=== PATIENT | female | born 1950 | race Two or more races ===

== ENCOUNTER 2021-06-01 00:27 | Inpatient (IN) | payer OTHER ==
[~2021-06-01] VITALS: Ht 154.9 cm; Wt 24.5 kg
[2021-06-01] MEDS ORDERED: IPRATROPIUM BROM 0.5 MG/2.5ML INH SOL NEB ONE (00:45)
[2021-06-01] MEDS ORDERED: ALBUTEROL SULF 2.5 MG/0.5ML(0.5%) NEB SOLN NEB ONE (00:45)
[2021-06-01] MEDS ORDERED: DexAMETHasone INJECTION 10 MG in D5W 5% 50 ML IV ONE (01:45)
[2021-06-01] MEDS ORDERED: ONDANSETRON HCL 4 MG/2 ML VIAL IV PRN (05:15)
[2021-06-01] MEDS ORDERED: NITROGLYCERIN 0.4 MG SL TAB SL PRN (05:15)
[2021-06-01] MEDS ORDERED: MORPHINE SULFATE INJECTION 2 MG/ML SYRG IV PRN (05:15)
[2021-06-01] MEDS ORDERED: DexAMETHasone SOD PHOS 10MG/1ML VIAL INJ IV ONE (05:30)
[2021-06-01] MEDS ORDERED: LORazepam 2MG/ML-1ML VIAL IV ONE (05:30)
[2021-06-01 05:44] LABS: Basophils # (auto) 0 10 ^3/uL (0-0.2); Basophils % (auto) 0.5 % (0.0-2.0); Eosinophils # (auto) 0.2 10 ^3/uL (0-0.8); Eosinophils % (auto) 3.3 % (0.0-7.0); Hematocrit 45.7 % (36.0-46.0); Hemoglobin 15.2 g/dL (12.2-16.2); Lymphocytes # (auto) 0.9 10 ^3/uL (0.4-5.4); Mean Corpuscular Hemoglobin 32.9 pg (28.0-32.0); Mean Corpuscular Hgb Conc. 33.4 g/dL (32.0-36.0); Mean Corpuscular Volume 98.7 fL (80.0-100.0); Monocytes # (auto) 0.5 10 ^3/uL (0-1.3); Monocytes % (auto) 7.4 % (0.0-12.0); Neutrophils # (auto) 5.1 10 ^3/uL (1.6-8.6); Neutrophils % (auto) 75.8 % (37.0-80.0); Nucleated Red Blood Cells % 0.1 %; Red Blood Cells 4.63 10^6/uL (4.0-5.20); Red Cell Distribution Width 13.3 % (11.8-14.3); White Blood Cell 6.7 10^3/uL (4.4-10.8)
[2021-06-01] MEDS ORDERED: SUCCINYLCHOLINE CHLORIDE 20 MG/ML 10ML VIAL IV ONE ×2 (05:58→06:00)
[2021-06-01] MEDS ORDERED: ETOMIDATE (2MG/ML) 20ML VIAL IV ONE ×2 (05:58→06:00)
[2021-06-01 06:00] VITALS: BP 141/70
[2021-06-01 06:08] LABS: Calcium 8.5 mg/dL (8.5-10.1)
[2021-06-01 06:15] LABS: BUN/Creatinine Ratio 23.4; Bilirubin, Total 0.4 mg/dL (0.2-1.0)
[2021-06-01] MEDS: PROPOFOL 100 ML IV SCH (06:15)
[2021-06-01 07:09] LABS: Urine Bacteria NONE SEEN /hpf (None Seen); Urine Blood 1+ /uL (Negative); Urine Mucus FEW (None Seen); Urine Specific Gravity 1.022 (1.001-1.035); Urine WBC 3 /hpf (0 - 5)
[2021-06-01] MEDS: IPRATROPIUM BROM 0.5 MG/2.5ML INH SOL NEB SCH ×3 (07:13→18:55)
[2021-06-01] MEDS: ALBUTEROL SULF 2.5 MG/0.5ML(0.5%) NEB SOLN NEB SCH ×3 (07:13→18:55)
[2021-06-01] MEDS ORDERED: NOREPINEPHRINE 8 MG/250ML KIT 250 ML IV ONE (07:27)
[2021-06-01] MEDS: MIDAZOLAM DRIP 50 mg/50mL 50 ML IV SCH (07:30)
[2021-06-01] MEDS: NOREPINEPHRINE 8 MG/250ML KIT 250 ML IV SCH (07:30)
[2021-06-01] MEDS ORDERED: MIDAZOLAM DRIP 50 mg/50mL 50 ML IV ONE (07:39)
[2021-06-01] MEDS ORDERED: cefTRIAXone 1GM/50ML D5W 50 ML IV SCH (09:00)
[2021-06-01 10:00] VITALS: BP 95/36
[2021-06-01] MEDS ORDERED: PANTOPRAZOLE 40 MG TAB PO SCH (10:00)
[2021-06-01] MEDS ORDERED: ENOXAPARIN SOD 40 MG/0.4 ML SYRINGE SC SCH (10:00)
[2021-06-01] MEDS ORDERED: DexAMETHasone INJECTION 10 MG in D5W 5% 50 ML IV SCH (10:00)
[2021-06-01] MEDS: methylPREDNISolone SOD SUCC 40 MG/ML VL IV SCH ×2 (10:00→22:00)
[2021-06-01] MEDS: ENOXAPARIN SOD 40 MG/0.4 ML SYRINGE SC SCH (10:00)
[2021-06-01 14:05] VITALS: BP 110/68
[2021-06-01] MEDS: ACETAMINOPHEN 325 MG TAB PO PRN (15:18)
[2021-06-01] MEDS: fentaNYL Drip 2500mCg/250mlNS 250 ML IV SCH (15:30)
[2021-06-01] MEDS: SODIUM CHLORIDE 0.9% 1,000 ML IV SCH (16:12)
[2021-06-01 18:55] VITALS: BP 110/68
[2021-06-01 19:30] VITALS: BP 88/49
[2021-06-01] MEDS: ACETAMINOPHEN 650 MG RECT SUPP PR PRN (20:50)
[2021-06-01 22:00] VITALS: BP 118/66
[2021-06-01] MEDS: PIPERACILLIN-TAZOB 3.375GM 100 ML IV SCH (22:00)
[2021-06-02 02:00] VITALS: BP 125/69
[2021-06-02] MEDS: PIPERACILLIN-TAZOB 3.375GM 100 ML IV SCH ×3 (05:47→23:26)
[2021-06-02 05:58] VITALS: BP 155/82
[2021-06-02] MEDS: ALBUTEROL SULF 2.5 MG/0.5ML(0.5%) NEB SOLN NEB SCH ×3 (05:58→18:53)
[2021-06-02] MEDS: IPRATROPIUM BROM 0.5 MG/2.5ML INH SOL NEB SCH ×3 (05:58→18:53)
[2021-06-02] MEDS: PROPOFOL 100 ML IV SCH ×2 (06:26→13:20)
[2021-06-02 06:37] LABS: Basophils # (auto) 0 10 ^3/uL (0-0.2); Basophils % (auto) 0.2 % (0.0-2.0); Eosinophils # (auto) 0 10 ^3/uL (0-0.8); Hematocrit 43.5 % (36.0-46.0); Hemoglobin 14.2 g/dL (12.2-16.2); Lymphocytes # (auto) 1.1 10 ^3/uL (0.4-5.4); Lymphocytes % (auto) 8.4 % (10.0-50.0); Mean Corpuscular Hemoglobin 32.2 pg (28.0-32.0); Mean Corpuscular Hgb Conc. 32.6 g/dL (32.0-36.0); Mean Corpuscular Volume 98.6 fL (80.0-100.0); Monocytes # (auto) 0.6 10 ^3/uL (0-1.3); Monocytes % (auto) 4.8 % (0.0-12.0); Neutrophils # (auto) 10.9 10 ^3/uL (1.6-8.6); Neutrophils % (auto) 86.6 % (37.0-80.0); Red Blood Cells 4.41 10^6/uL (4.0-5.20); Red Cell Distribution Width 13.4 % (11.8-14.3); White Blood Cell 12.6 10^3/uL (4.4-10.8)
[2021-06-02 06:49] LABS: Albumin 3.5 g/dL (3.4-5.0); Calcium 8.6 mg/dL (8.5-10.1); Potassium 4.6 mmol/L (3.5-5.1)
[2021-06-02 06:53] LABS: BUN/Creatinine Ratio 29.8; Bilirubin, Total 0.6 mg/dL (0.2-1.0); Total Protein 7.2 g/dL (6.4-8.2)
[2021-06-02] MEDS: MIDAZOLAM DRIP 50 mg/50mL 50 ML IV SCH ×2 (07:30→16:00)
[2021-06-02] MEDS ORDERED: Jevity 1.2 Cal/Fiber 1 Liter GT SCH (09:45)
[2021-06-02 10:00] VITALS: BP 144/72
[2021-06-02] MEDS: FAMOTIDINE (10MG/ML) 2ML VL IV SCH (10:22)
[2021-06-02] MEDS: ENOXAPARIN SOD 40 MG/0.4 ML SYRINGE SC SCH ×2 (10:23→23:26)
[2021-06-02] MEDS: methylPREDNISolone SOD SUCC 40 MG/ML VL IV SCH ×2 (10:23→23:26)
[2021-06-02 14:11] VITALS: BP 108/59
[2021-06-02] MEDS: SODIUM CHLORIDE 0.9% 1,000 ML IV SCH (14:23)
[2021-06-02] MEDS: ACETAMINOPHEN 650 MG RECT SUPP PR PRN (14:48)
[2021-06-02] MEDS: fentaNYL Drip 2500mCg/250mlNS 250 ML IV SCH (15:30)
[2021-06-02] MEDS: NOREPINEPHRINE 8 MG/250ML KIT 250 ML IV SCH (17:07)
[2021-06-02 18:53] VITALS: BP 178/85
[2021-06-02 22:01] VITALS: BP 129/75
[2021-06-03 02:00] VITALS: BP 168/90
[2021-06-03 05:58] LABS: Basophils # (auto) 0 10 ^3/uL (0-0.2); Basophils % (auto) 0.1 % (0.0-2.0); Eosinophils # (auto) 0 10 ^3/uL (0-0.8); Hematocrit 42.9 % (36.0-46.0); Hemoglobin 14.2 g/dL (12.2-16.2); Lymphocytes % (auto) 6.8 % (10.0-50.0); Mean Corpuscular Hemoglobin 32.5 pg (28.0-32.0); Mean Corpuscular Hgb Conc. 33.2 g/dL (32.0-36.0); Monocytes # (auto) 0.9 10 ^3/uL (0-1.3); Monocytes % (auto) 6.1 % (0.0-12.0); Neutrophils # (auto) 12.3 10 ^3/uL (1.6-8.6); Red Blood Cells 4.37 10^6/uL (4.0-5.20); Red Cell Distribution Width 13.3 % (11.8-14.3); White Blood Cell 14.1 10^3/uL (4.4-10.8)
[2021-06-03] MEDS: IPRATROPIUM BROM 0.5 MG/2.5ML INH SOL NEB SCH ×2 (05:58→12:14)
[2021-06-03] MEDS: ALBUTEROL SULF 2.5 MG/0.5ML(0.5%) NEB SOLN NEB SCH ×2 (05:58→12:14)
[2021-06-03 06:02] VITALS: BP 145/78
[2021-06-03 06:19] LABS: Calcium 8.7 mg/dL (8.5-10.1)
[2021-06-03 06:21] LABS: BUN/Creatinine Ratio 35.3
[2021-06-03] MEDS: PIPERACILLIN-TAZOB 3.375GM 100 ML IV SCH ×3 (06:25→22:50)
[2021-06-03] MEDS: NOREPINEPHRINE 8 MG/250ML KIT 250 ML IV SCH (07:30)
[2021-06-03] MEDS: SODIUM CHLORIDE 0.9% 1,000 ML IV SCH (07:45)
[2021-06-03] MEDS: methylPREDNISolone SOD SUCC 40 MG/ML VL IV SCH ×2 (09:56→23:31)
[2021-06-03] MEDS: FAMOTIDINE (10MG/ML) 2ML VL IV SCH (09:56)
[2021-06-03] MEDS: ENOXAPARIN SOD 40 MG/0.4 ML SYRINGE SC SCH ×2 (09:56→22:50)
[2021-06-03 10:32] VITALS: BP 120/65
[2021-06-03 13:25] VITALS: BP 122/57
[2021-06-03] MEDS ORDERED: Jevity 1.2 Cal/Fiber 1 Liter GT SCH (14:00)
[2021-06-03] MEDS: fentaNYL Drip 2500mCg/250mlNS 250 ML IV SCH (14:45)
[2021-06-03 18:05] VITALS: BP 168/85
[2021-06-03 21:26] VITALS: BP 135/70
[2021-06-03] MEDS: MIDAZOLAM DRIP 50 mg/50mL 50 ML IV SCH (22:50)
[2021-06-04] MEDS: ALBUTEROL SULF 2.5 MG/0.5ML(0.5%) NEB SOLN NEB SCH ×4 (00:10→18:00)
[2021-06-04 01:57] VITALS: BP 154/54
[2021-06-04] MEDS: SODIUM CHLORIDE 0.9% 1,000 ML IV SCH ×2 (04:08→23:02)
[2021-06-04] MEDS: MIDAZOLAM DRIP 50 mg/50mL 50 ML IV SCH ×2 (04:46→13:30)
[2021-06-04] MEDS: PIPERACILLIN-TAZOB 3.375GM 100 ML IV SCH ×3 (05:45→21:57)
[2021-06-04 05:59] LABS: Calcium 7.8 mg/dL (8.5-10.1); Potassium 5.4 mmol/L (3.5-5.1)
[2021-06-04 06:11] LABS: BUN/Creatinine Ratio 46.8; CRP High Sensitivity 2.7 mg/dL (< 0.3)
[2021-06-04] MEDS: PROPOFOL 100 ML IV SCH (06:36)
[2021-06-04 06:48] VITALS: BP 131/73
[2021-06-04] MEDS: IPRATROPIUM BROM 0.5 MG/2.5ML INH SOL NEB SCH ×3 (06:48→18:00)
[2021-06-04] MEDS: NOREPINEPHRINE 8 MG/250ML KIT 250 ML IV SCH (07:30)
[2021-06-04 09:48] VITALS: BP 154/88
[2021-06-04] MEDS: FAMOTIDINE (10MG/ML) 2ML VL IV SCH (10:31)
[2021-06-04] MEDS: methylPREDNISolone SOD SUCC 40 MG/ML VL IV SCH ×2 (10:31→21:57)
[2021-06-04] MEDS: ENOXAPARIN SOD 40 MG/0.4 ML SYRINGE SC SCH ×2 (10:31→21:58)
[2021-06-04] MEDS ORDERED: SODIUM ZIRCONIUM CYCL 10 GM PAK PO ONE (12:45)
[2021-06-04] MEDS ORDERED: FUROSEMIDE 20 MG/2 ML VIAL IV ONE (12:45)
[2021-06-04 14:16] VITALS: BP 145/82
[2021-06-04] MEDS: fentaNYL Drip 2500mCg/250mlNS 250 ML IV SCH (16:14)
[2021-06-04 18:05] VITALS: BP 165/88
[2021-06-04] MEDS: hydrALAZINE HCL 20 MG/ML VL IV PRN (21:12)
[2021-06-04 22:08] VITALS: BP 135/71
[2021-06-05 02:20] VITALS: BP 163/64
[2021-06-05] MEDS: hydrALAZINE HCL 20 MG/ML VL IV PRN (03:21)
[2021-06-05] MEDS: PIPERACILLIN-TAZOB 3.375GM 100 ML IV SCH ×3 (05:52→22:26)
[2021-06-05 06:20] VITALS: BP 164/84
[2021-06-05] MEDS: PROPOFOL 100 ML IV SCH (06:26)
[2021-06-05] MEDS: ALBUTEROL SULF 2.5 MG/0.5ML(0.5%) NEB SOLN NEB SCH ×3 (06:52→18:59)
[2021-06-05] MEDS: IPRATROPIUM BROM 0.5 MG/2.5ML INH SOL NEB SCH ×3 (06:54→18:58)
[2021-06-05 07:23] LABS: Basophils # (auto) 0 10 ^3/uL (0-0.2); Basophils % (auto) 0.1 % (0.0-2.0); Eosinophils # (auto) 0 10 ^3/uL (0-0.8); Hematocrit 46.2 % (36.0-46.0); Hemoglobin 15.5 g/dL (12.2-16.2); Lymphocytes # (auto) 1.1 10 ^3/uL (0.4-5.4); Lymphocytes % (auto) 9.5 % (10.0-50.0); Mean Corpuscular Hemoglobin 32.3 pg (28.0-32.0); Mean Corpuscular Hgb Conc. 33.6 g/dL (32.0-36.0); Mean Corpuscular Volume 96.3 fL (80.0-100.0); Monocytes # (auto) 0.8 10 ^3/uL (0-1.3); Neutrophils # (auto) 9.3 10 ^3/uL (1.6-8.6); Neutrophils % (auto) 83.4 % (37.0-80.0); Red Blood Cells 4.79 10^6/uL (4.0-5.20); Red Cell Distribution Width 13.5 % (11.8-14.3); White Blood Cell 11.1 10^3/uL (4.4-10.8)
[2021-06-05 07:32] LABS: Albumin 3.1 g/dL (3.4-5.0); Calcium 8.4 mg/dL (8.5-10.1); Potassium 3.6 mmol/L (3.5-5.1)
[2021-06-05 07:36] LABS: BUN/Creatinine Ratio 51.1
[2021-06-05] MEDS: NOREPINEPHRINE 8 MG/250ML KIT 250 ML IV SCH (08:06)
[2021-06-05 08:52] VITALS: BP 144/78
[2021-06-05] MEDS: FAMOTIDINE (10MG/ML) 2ML VL IV SCH (10:10)
[2021-06-05] MEDS: methylPREDNISolone SOD SUCC 40 MG/ML VL IV SCH ×2 (10:10→22:26)
[2021-06-05] MEDS: ENOXAPARIN SOD 40 MG/0.4 ML SYRINGE SC SCH ×2 (10:10→22:25)
[2021-06-05 10:12] VITALS: BP 149/82
[2021-06-05] MEDS ORDERED: FUROSEMIDE 40 MG/4 ML VIAL IV ONE (14:00)
[2021-06-05] MEDS: POTASSIUM CHL 20MEQ/50ML 50 ML IV SCH ×2 (14:26→16:16)
[2021-06-05] MEDS: fentaNYL Drip 2500mCg/250mlNS 250 ML IV SCH (15:30)
[2021-06-06] MEDS: PROPOFOL 100 ML IV SCH (05:32)
[2021-06-06] MEDS: IPRATROPIUM BROM 0.5 MG/2.5ML INH SOL NEB SCH ×3 (05:32→19:39)
[2021-06-06] MEDS: ALBUTEROL SULF 2.5 MG/0.5ML(0.5%) NEB SOLN NEB SCH ×3 (05:32→19:39)
[2021-06-06] MEDS: PIPERACILLIN-TAZOB 3.375GM 100 ML IV SCH ×3 (06:25→21:52)
[2021-06-06 08:35] LABS: Basophils # (auto) 0 10 ^3/uL (0-0.2); Basophils % (auto) 0.1 % (0.0-2.0); Eosinophils # (auto) 0 10 ^3/uL (0-0.8); Hematocrit 42.5 % (36.0-46.0); Hemoglobin 14.4 g/dL (12.2-16.2); Lymphocytes # (auto) 1.2 10 ^3/uL (0.4-5.4); Lymphocytes % (auto) 12.1 % (10.0-50.0); Mean Corpuscular Hemoglobin 32.9 pg (28.0-32.0); Mean Corpuscular Hgb Conc. 33.9 g/dL (32.0-36.0); Mean Corpuscular Volume 97.1 fL (80.0-100.0); Monocytes # (auto) 0.6 10 ^3/uL (0-1.3); Neutrophils # (auto) 8.1 10 ^3/uL (1.6-8.6); Neutrophils % (auto) 81.8 % (37.0-80.0); Nucleated Red Blood Cells % 0.1 %; Red Blood Cells 4.38 10^6/uL (4.0-5.20); Red Cell Distribution Width 13.2 % (11.8-14.3)
[2021-06-06 09:04] LABS: Calcium 8.1 mg/dL (8.5-10.1); Potassium 3.8 mmol/L (3.5-5.1)
[2021-06-06 09:08] LABS: BUN/Creatinine Ratio 72.7; Bilirubin, Total 0.9 mg/dL (0.2-1.0); Total Protein 6.1 g/dL (6.4-8.2)
[2021-06-06] MEDS: NOREPINEPHRINE 8 MG/250ML KIT 250 ML IV SCH (11:12)
[2021-06-06] MEDS ORDERED: ALBUTEROL SULF 2.5 MG/0.5ML(0.5%) NEB SOLN ONE (12:19)
[2021-06-06] MEDS ORDERED: IPRATROPIUM BROM 0.5 MG/2.5ML INH SOL ONE (12:20)
[2021-06-06] MEDS: ENOXAPARIN SOD 40 MG/0.4 ML SYRINGE SC SCH ×2 (12:55→21:52)
[2021-06-06] MEDS: methylPREDNISolone SOD SUCC 40 MG/ML VL IV SCH ×2 (12:56→21:51)
[2021-06-06] MEDS: FAMOTIDINE (10MG/ML) 2ML VL IV SCH (12:56)
[2021-06-06 15:51] VITALS: BP 151/79
[2021-06-07 05:00] VITALS: BP 141/72
[2021-06-07] MEDS: IPRATROPIUM BROM 0.5 MG/2.5ML INH SOL NEB SCH ×2 (08:40→19:55)
[2021-06-07] MEDS: ALBUTEROL SULF 2.5 MG/0.5ML(0.5%) NEB SOLN NEB SCH ×2 (08:40→19:55)
[2021-06-07 09:00] VITALS: BP 147/62
[2021-06-07] MEDS: methylPREDNISolone SOD SUCC 40 MG/ML VL IV SCH (10:18)
[2021-06-07] MEDS: ENOXAPARIN SOD 40 MG/0.4 ML SYRINGE SC SCH ×2 (10:18→22:24)
[2021-06-07] MEDS: FAMOTIDINE (10MG/ML) 2ML VL IV SCH (10:18)
[2021-06-07] MEDS ORDERED: LEVO125T7 PO (11:24)
[2021-06-07] MEDS ORDERED: LEVOTHYROXINE SODIUM 50 MCG TAB PO ONE (11:30)
[2021-06-07 13:00] VITALS: BP 140/76
[2021-06-07 16:32] VITALS: BP 125/52
[2021-06-07 22:00] VITALS: BP 112/59
[2021-06-08 05:00] VITALS: BP_SYST 128; BP_SYST 144; BP_DIAS 65; BP_DIAS 95
[2021-06-08] MEDS: ACETAMINOPHEN 325 MG TAB PO PRN (05:44)
[2021-06-08] MEDS: LEVOTHYROXINE SODIUM 50 MCG TAB PO SCH (06:05)
[2021-06-08] MEDS: ALBUTEROL SULF 2.5 MG/0.5ML(0.5%) NEB SOLN NEB SCH ×3 (06:29→19:20)
[2021-06-08] MEDS: IPRATROPIUM BROM 0.5 MG/2.5ML INH SOL NEB SCH ×3 (06:29→19:20)
[2021-06-08 08:03] VITALS: BP 103/53
[2021-06-08] MEDS: predniSONE 20 MG TAB PO SCH (08:59)
[2021-06-08] MEDS: levoFLOXacin 500 MG TAB PO SCH (08:59)
[2021-06-08] MEDS: ENOXAPARIN SOD 40 MG/0.4 ML SYRINGE SC SCH ×2 (09:00→23:50)
[2021-06-08 13:00] VITALS: BP 126/61
[2021-06-08 22:00] VITALS: BP 125/58
[2021-06-09 05:00] VITALS: BP 133/83
[2021-06-09] MEDS: IPRATROPIUM BROM 0.5 MG/2.5ML INH SOL NEB SCH ×3 (06:08→19:12)
[2021-06-09] MEDS: ALBUTEROL SULF 2.5 MG/0.5ML(0.5%) NEB SOLN NEB SCH ×3 (06:08→19:12)
[2021-06-09] MEDS: LEVOTHYROXINE SODIUM 50 MCG TAB PO SCH (06:21)
[2021-06-09 08:00] VITALS: BP 117/64
[2021-06-09] MEDS: predniSONE 20 MG TAB PO SCH (10:11)
[2021-06-09] MEDS: ENOXAPARIN SOD 40 MG/0.4 ML SYRINGE SC SCH ×2 (10:11→21:50)
[2021-06-09] MEDS: levoFLOXacin 500 MG TAB PO SCH (10:11)
[2021-06-09] MEDS ORDERED: LEVO-28 PO (12:04)
[2021-06-09] MEDS ORDERED: PRED20TA2 PO (12:04)
[2021-06-09] MEDS ORDERED: ALB5IS NEB (12:04)
[2021-06-09] MEDS ORDERED: FLUCONAZOLE 100 MG TAB PO ONE (12:15)
[2021-06-09 13:00] VITALS: BP 140/66
[2021-06-09 22:00] VITALS: BP 138/68
[2021-06-10] MEDS: IPRATROPIUM BROM 0.5 MG/2.5ML INH SOL NEB SCH ×4 (02:17→19:00)
[2021-06-10] MEDS: ALBUTEROL SULF 2.5 MG/0.5ML(0.5%) NEB SOLN NEB SCH ×4 (02:17→19:00)
[2021-06-10 05:19] VITALS: BP 137/88
[2021-06-10] MEDS: LEVOTHYROXINE SODIUM 50 MCG TAB PO SCH (06:30)
[2021-06-10 09:00] VITALS: BP 111/46
[2021-06-10] MEDS: levoFLOXacin 500 MG TAB PO SCH (09:15)
[2021-06-10] MEDS: predniSONE 20 MG TAB PO SCH (09:15)
[2021-06-10] MEDS: ENOXAPARIN SOD 40 MG/0.4 ML SYRINGE SC SCH ×2 (09:16→21:32)
[2021-06-10 13:00] VITALS: BP 107/46
[2021-06-10 17:00] VITALS: BP 98/51
[2021-06-10 22:03] VITALS: BP 130/64
[2021-06-11 05:17] VITALS: BP 121/59
[2021-06-11] MEDS: LEVOTHYROXINE SODIUM 50 MCG TAB PO SCH (06:25)
[2021-06-11] MEDS: ALBUTEROL SULF 2.5 MG/0.5ML(0.5%) NEB SOLN NEB SCH ×3 (07:17→19:11)
[2021-06-11] MEDS: IPRATROPIUM BROM 0.5 MG/2.5ML INH SOL NEB SCH ×3 (07:17→19:11)
[2021-06-11 08:00] VITALS: BP 127/54
[2021-06-11] MEDS: levoFLOXacin 500 MG TAB PO SCH (10:09)
[2021-06-11] MEDS: predniSONE 20 MG TAB PO SCH (10:09)
[2021-06-11] MEDS: ENOXAPARIN SOD 40 MG/0.4 ML SYRINGE SC SCH ×2 (10:10→21:06)
[2021-06-11 22:00] VITALS: BP 103/55
[2021-06-11 22:48] VITALS: BP 103/55
[2021-06-12 05:00] VITALS: BP 114/50
[2021-06-12 05:02] LABS: Basophils # (auto) 0 10 ^3/uL (0-0.2); Basophils % (auto) 0.1 % (0.0-2.0); Eosinophils # (auto) 0 10 ^3/uL (0-0.8); Eosinophils % (auto) 0.3 % (0.0-7.0); Lymphocytes # (auto) 3.2 10 ^3/uL (0.4-5.4); Nucleated Red Blood Cells % 0.1 %; Red Cell Distribution Width 12.8 % (11.8-14.3)
[2021-06-12 05:03] LABS: Hematocrit 38.6 % (36.0-46.0); Hemoglobin 13.1 g/dL (12.2-16.2); Lymphocytes % (auto) 31.2 % (10.0-50.0); Mean Corpuscular Hemoglobin 33.2 pg (28.0-32.0); Mean Corpuscular Hgb Conc. 33.9 g/dL (32.0-36.0); Mean Corpuscular Volume 98.2 fL (80.0-100.0); Monocytes % (auto) 10.2 % (0.0-12.0); Neutrophils % (auto) 58.2 % (37.0-80.0); Red Blood Cells 3.93 10^6/uL (4.0-5.20); White Blood Cell 10.3 10^3/uL (4.4-10.8)
[2021-06-12 05:16] LABS: Calcium 8.8 mg/dL (8.5-10.1); Potassium 4.5 mmol/L (3.5-5.1)
[2021-06-12] MEDS: ALBUTEROL SULF 2.5 MG/0.5ML(0.5%) NEB SOLN NEB SCH ×2 (06:53→10:59)
[2021-06-12] MEDS: IPRATROPIUM BROM 0.5 MG/2.5ML INH SOL NEB SCH ×2 (06:53→10:59)
[2021-06-12] MEDS: LEVOTHYROXINE SODIUM 50 MCG TAB PO SCH (07:06)
[2021-06-12 09:00] VITALS: BP 120/67
[2021-06-12] MEDS: levoFLOXacin 500 MG TAB PO SCH (09:02)
[2021-06-12] MEDS: predniSONE 20 MG TAB PO SCH (09:02)
[2021-06-12] MEDS: ENOXAPARIN SOD 40 MG/0.4 ML SYRINGE SC SCH (09:02)
[2021-06-12 13:00] VITALS: BP 111/58
[2021-06-12 15:36] VITALS: BP 111/58
== END 2021-06-12 16:03 | disposition left against medical advice (07) | DRG 870 ==
LOC: ER 00:27 → UNDOADMIN 05:16 → TELE 05:16 → TELE-WESTW 06-06 13:38
PROVIDERS: ADMIT Nurse Practitioner; ATTEND Internal Medicine
PROC: 5A1955Z Respiratory Ventilation, Greater than 96 Consecutive Hours (ICD-10-PCS; principal; 2021-06-01)
PROC: 0BH17EZ Insertion of Endotracheal Airway into Trachea, Via Natural or Artificial Opening (ICD-10-PCS; 2021-06-01)
PROC: 06HM33Z Insertion of Infusion Device into Right Femoral Vein, Percutaneous Approach (ICD-10-PCS; 2021-06-01)
DX: A41.9 Sepsis, unspecified organism (principal); J18.9 Pneumonia, unspecified organism; I50.43 Acute on chronic combined systolic (congestive) and diastolic (congestive) heart failure; I21.4 Non-ST elevation (NSTEMI) myocardial infarction; J96.01 Acute respiratory failure with hypoxia; J96.02 Acute respiratory failure with hypercapnia; J44.1 Chronic obstructive pulmonary disease with (acute) exacerbation; E87.2 Acidosis; J44.0 Chronic obstructive pulmonary disease with (acute) lower respiratory infection; E87.5 Hyperkalemia; Z20.822 Contact with and (suspected) exposure to COVID-19; I11.0 Hypertensive heart disease with heart failure; Z53.29 Procedure and treatment not carried out because of patient's decision for other reasons; Z79.82 Long term (current) use of aspirin; Z91.09 Other allergy status, other than to drugs and biological substances; Z72.0 Tobacco use; Z71.6 Tobacco abuse counseling
CPT/HCPCS: 36415; 36600; 71045; 80048; 80053; 81001; 82550; 82805; 83605; 83880; 84443; 84484; 85025; 85379; 86141; 87040; 87070; 87081; 87205; 87426; 93005; 93306; 94002; 94003; 94640; 96365; 96375; 97110; 97116; 97163; 97530; G0378; J0330; J0696; J1100; J2250; J2543; J2704; J3490; J7060